=== PATIENT | female | born 1990 | race Caucasian/White ===

== ENCOUNTER 2016-07-08 09:35 | Observation (INO) | payer BC ==
[~2016-07-08] VITALS: Ht 165.1 cm; Wt 47.6 kg
[2016-07-08 10:58] LABS: EOSINOPHIL (%) 0.6 % (0-5); HEMATOCRIT 42.9 % (36.0-46.0); IMMATURE GRANULOCYTE (%) 0.1 % (0.0-0.7); IMMATURE GRANULOCYTE COUNT 0.1 K/uL; LYMPHOCYTE COUNT 2.1 K/uL (1.0-2.8); MCHC 35.4 G/DL (30.0-36.0); MCV 90.3 FL (83-99); MEAN PLAT.VOLUME 12.5 uM^3 (9.5-12.4); MONOCYTE (%) 6.9 % (3-12); MONOCYTE COUNT 0.5 K/uL (0-0.8); NEUTROPHIL (%) 61.4 % (45-76); NEUTROPHIL COUNT 4.3 K/uL (1.8-6.4); PLATELET COUNT 176 K/uL (156-360); RBC DIS.WIDTH-CV 11.4 % (11.8-14.6); RBC DIS.WIDTH-SD 36.9 % (39-53); RED BLOOD COUNT 4.75 M/uL (3.80-5.20)
[2016-07-08 11:06] LABS: ADD MIUA? NO; BILIRUBIN NEGATIVE; BLOOD NEGATIVE; COLOR YELLOW ((YELLOW)); GLUCOSE (STRIP) NEGATIVE; KETONES NEGATIVE; LEUKOCYTES NEGATIVE; NITRITE NEGATIVE; PROTEIN (STRIP) NEGATIVE; SPECIFIC GRAVITY 1.016 (1.000-1.030); UROBILINOGEN 0.2 MG/DL (0.2-1.0)
[2016-07-08 11:13] LABS: CHLORIDE 105 mEq/L (99-109); POTASSIUM 3.4 mEq/L (3.7-5.4); SODIUM 141 mEq/L (136-147)
[2016-07-08 11:15] LABS: PHENCYCLIDINE NEGATIVE (25 ng/mL); THC CANNABINOIDS PRESUMPTIVE POSITIVE (50 ng/mL)
[2016-07-08 11:16] LABS: GLUCOSE 88 mg/dL (70-99)
[2016-07-08 11:16] LABS: ADD MEDTOX COMMENT Y; AMPHETAMINE NEGATIVE (500 ng/mL); BARBITURATES NEGATIVE (200 ng/mL); BENZODIAZEPINES NEGATIVE (150 ng/mL); COCAINE NEGATIVE (150 ng/mL); INTERNAL CONTROLS VALID? YES; METHADONE NEGATIVE (200 ng/mL); METHAMPHETAMINE NEGATIVE (500 ng/mL); OPIATES (MORPHINE) NEGATIVE (100 ng/mL); OXYCODONE NEGATIVE (100 ng/mL); PROPOXYPHENE NEGATIVE (300 ng/mL); TRICYCLIC ANTIDEPRESSANTS NEGATIVE (300 ng/mL)
[2016-07-08 11:17] LABS: ANION GAP 9 MEQ/L (2-14)
[2016-07-08 11:18] LABS: TOTAL BILIRUBIN 1.4 mg/dL (0.0-1.0)
[2016-07-08 11:19] LABS: ALKALINE PHOSPHATASE 74 IU/L (3-129); SERUM ETHYL ALCOHOL < 10 mg/dL
[2016-07-08 11:20] LABS: GFR ESTIMATE (CALCULATED) > 59 mL/min/
[2016-07-08 11:21] LABS: UREA NITROGEN (BUN) 8 mg/dL (9-23)
[2016-07-08 11:28] LABS: QUANTITATIVE HCG < 4.0 MIU/ML
[2016-07-08 16:04] LABS: CREATINE KINASE 40 IU/L (1-294); TOTAL CK 40 IU/L (1-294)
[2016-07-08 16:10] LABS: CK-MB < 0.4 ng/mL (0.0-4.9)
[2016-07-08 16:11] LABS: TROP-I INTERPRETATION NEGATIVE; TROPONIN-I < 0.01 ng/mL (0.0-0.30)
[2016-07-08 16:40] VITALS: BP 107/72
[2016-07-08 17:03] LABS: PROLACTIN 15.4 NG/ML
[2016-07-08 19:00] VITALS: BP 110/67
[2016-07-08 21:55] LABS: TROP-I INTERPRETATION NEGATIVE; TROPONIN-I < 0.01 ng/mL (0.0-0.30)
[2016-07-09] VITALS: BP 98/57
[2016-07-09 03:48] VITALS: BP 97/60
[2016-07-09 09:58] LABS: TROP-I INTERPRETATION NEGATIVE; TROPONIN-I < 0.01 ng/mL (0.0-0.30)
[2016-07-09 11:51] VITALS: BP 104/58
[2016-07-09] MEDS ORDERED: TYLENOL REGULA325 MG PO (12:48)
[2016-07-09] MEDS ORDERED: LEVETIRACETAM500 MG PO (12:48)
== END 2016-07-09 14:41 | disposition home or self-care (01) ==
LOC: EME 09:35 → EDOF 14:43 → 5WEST 16:19
PROVIDERS: Emergency Medicine; Internal Medicine; Student in an Organized Health Care Education/Training Program
DX: R56.9 Unspecified convulsions (principal); R94.31 Abnormal electrocardiogram [ECG] [EKG]; F12.10 Cannabis abuse, uncomplicated; E87.6 Hypokalemia; Z82.49 Family history of ischemic heart disease and other diseases of the circulatory system; Z88.1 Allergy status to other antibiotic agents
CPT/HCPCS: 70450; 71020; 80053; 81003; 82550; 82553; 83735; 84146; 84484; 84702; 84999; 85025; 93005; 99281; 99285; G0378; G0480; J7030

== ENCOUNTER 2016-08-07 17:19 | Emergency (ER) | payer BC, OTHER ==
[~2016-08-07] VITALS: Ht 165.1 cm; Wt 47.1 kg
[~2016-08-07 17:19] MED LIST: LEVETIRACETAM500 MG PO; TYLENOL REGULA325 MG PO
[2016-08-07 18:06] LABS: HEMATOCRIT 42.7 % (36.0-46.0); MCH 31.3 PG (29.0-34.0); MCHC 34.4 G/DL (30.0-36.0); MCV 90.9 FL (83-99); RBC DIS.WIDTH-CV 11.4 % (11.8-14.6); RBC DIS.WIDTH-SD 38.1 % (39-53)
[2016-08-07 18:16] LABS: CHLORIDE 105 mEq/L (99-109); SODIUM 140 mEq/L (136-147)
[2016-08-07 18:18] LABS: GLUCOSE 91 mg/dL (70-99)
[2016-08-07 18:20] LABS: ANION GAP 10 MEQ/L (2-14)
[2016-08-07 18:22] LABS: GFR ESTIMATE (CALCULATED) > 59 mL/min/
[2016-08-07 18:23] LABS: UREA NITROGEN (BUN) 8 mg/dL (9-23)
[2016-08-07 18:41] LABS: MEAN PLAT.VOLUME 12.5 uM^3 (9.5-12.4); PLATELET COUNT 186 K/uL (156-360)
[2016-08-07 18:50] LABS: QUANTITATIVE HCG 37453.8 MIU/ML
[2016-08-07 20:04] LABS: ADD MIUA? NO; BILIRUBIN NEGATIVE; BLOOD NEGATIVE; COLOR YELLOW ((YELLOW)); GLUCOSE (STRIP) NEGATIVE; KETONES 80; LEUKOCYTES NEGATIVE; NITRITE NEGATIVE; PROTEIN (STRIP) NEGATIVE; SPECIFIC GRAVITY 1.016 (1.000-1.030); UCUL ADDED? NO; UROBILINOGEN 0.2 MG/DL (0.2-1.0)
[2016-08-07] MEDS ORDERED: ZOFRAN ODT4 MG PO (21:59)
[2016-08-07 22:17] VITALS: BP 132/57
[2016-08-08] MEDS ORDERED: PRENATAL VITAM1 EA10 PO (13:00)
== END 2016-08-07 22:21 | disposition home or self-care (01) ==
LOC: EME 17:19
DX: O26.891 Other specified pregnancy related conditions, first trimester (principal); R11.2 Nausea with vomiting, unspecified; Z3A.01 Less than 8 weeks gestation of pregnancy
CPT/HCPCS: 80048; 81003; 84702; 85027; 99281; 99284; J2405; J7030

== ENCOUNTER 2016-11-19 19:28 | Emergency (ER) | payer BC, OTHER ==
[~2016-11-19] VITALS: Ht 165.1 cm; Wt 53.3 kg
[~2016-11-19 19:28] MED LIST changes: +DICLEGIS DR 101 EACH PO; +PRENATAL VITAM1 EA10 PO; +ZOFRAN ODT4 MG PO
[2016-11-19 19:59] LABS: HEMATOCRIT 34.3 % (36.0-46.0); MCH 32.2 PG (29.0-34.0); MCHC 34.4 G/DL (30.0-36.0); MCV 93.7 FL (83-99); MEAN PLAT.VOLUME 10.9 uM^3 (9.5-12.4); PLATELET COUNT 143 K/uL (156-360); RBC DIS.WIDTH-CV 12.6 % (11.8-14.6); RBC DIS.WIDTH-SD 43.4 % (39-53); RED BLOOD COUNT 3.66 M/uL (3.80-5.20); WHITE BLOOD COUNT 5.6 K/uL (4.1-10.2)
[2016-11-19 20:08] LABS: CHLORIDE 104 mEq/L (99-109); POTASSIUM 3.6 mEq/L (3.7-5.4); SODIUM 134 mEq/L (136-147)
[2016-11-19 20:10] LABS: GLUCOSE 95 mg/dL (70-99)
[2016-11-19 20:11] LABS: ANION GAP 5 MEQ/L (2-14)
[2016-11-19 20:12] LABS: TOTAL BILIRUBIN 0.9 mg/dL (0.0-1.0)
[2016-11-19 20:13] LABS: ALKALINE PHOSPHATASE 81 IU/L (3-129)
[2016-11-19 20:14] LABS: GFR ESTIMATE (CALCULATED) > 59 mL/min/
[2016-11-19 20:15] LABS: UREA NITROGEN (BUN) 5 mg/dL (9-23)
[2016-11-19 20:17] LABS: LIPASE 7 U/L (1.0-51.0)
[2016-11-19 20:39] LABS: QUANTITATIVE HCG 28838.3 MIU/ML
[2016-11-19 21:05] LABS: CREATINE KINASE 21 IU/L (1-294)
[2016-11-19 21:13] LABS: ADD MIUA? YES; BILIRUBIN NEGATIVE; BLOOD NEGATIVE; COLOR YELLOW ((YELLOW)); GLUCOSE (STRIP) NEGATIVE; KETONES NEGATIVE; LEUKOCYTES NEGATIVE; NITRITE NEGATIVE; PROTEIN (STRIP) NEGATIVE; SPECIFIC GRAVITY 1.003 (1.000-1.030); UROBILINOGEN 0.2 MG/DL (0.2-1.0)
[2016-11-19 21:27] LABS: BACTERIA RARE /HPF; EPITHELIAL CELLS 3+ /HPF; MUCUS NONE SEEN /LPF; RED BLOOD CELLS 0-5 /HPF (0-5); WHITE BLOOD CELLS 0-5 /HPF (0-5)
[2016-11-19 21:44] VITALS: BP 117/78
== END 2016-11-19 21:47 | disposition home or self-care (01) ==
LOC: EME 19:28
PROVIDERS: Nurse Practitioner Family
DX: O98.512 Other viral diseases complicating pregnancy, second trimester (principal); B34.9 Viral infection, unspecified; O99.89 Other specified diseases and conditions complicating pregnancy, childbirth and the puerperium; R51 Headache; Z3A.21 21 weeks gestation of pregnancy
CPT/HCPCS: 71020; 80053; 81003; 82550; 83690; 84702; 85027; 87651 90; 99281; 99285; J7030

== ENCOUNTER 2016-11-21 14:38 | Outpatient (CLI) | payer BC, OTHER ==
[~2016-11-21] VITALS: Ht 165.1 cm; Wt 53.2 kg
[2016-11-21] MEDS ORDERED: TYLENOL EXTRA500 MG PO (15:26)
[2016-11-21 16:34] LABS: EOSINOPHIL (%) 0.4 % (0-5); HEMATOCRIT 32.7 % (36.0-46.0); IMMATURE GRANULOCYTE (%) 0.5 % (0.0-0.7); INSTRUMENT ABS NEUTROPHIL CT 7.1 K/uL; LYMPHOCYTE COUNT 0.8 K/uL (1.0-2.8); MCH 31.9 PG (29.0-34.0); MCHC 34.3 G/DL (30.0-36.0); MCV 93.2 FL (83-99); MEAN PLAT.VOLUME 10.6 uM^3 (9.5-12.4); MONOCYTE (%) 4.7 % (3-12); MONOCYTE COUNT 0.4 K/uL (0-0.8); NEUTROPHIL (%) 84.8 % (45-76); NEUTROPHIL COUNT 7.1 K/uL (1.8-6.4); PLATELET COUNT 154 K/uL (156-360); RBC DIS.WIDTH-CV 12.9 % (11.8-14.6); RBC DIS.WIDTH-SD 44.2 % (39-53); RED BLOOD COUNT 3.51 M/uL (3.80-5.20); WHITE BLOOD COUNT 8.3 K/uL (4.1-10.2)
[2016-11-21 17:15] LABS: ANION GAP 8 MEQ/L (2-14); CHLORIDE 101 MEQ/L (99-109); POTASSIUM 3.5 MEQ/L (3.7-5.4); SAMPLE HEMOLYSIS CHECK 0; SAMPLE ICTERIC CHECK 0; SAMPLE LIPEMIA CHECK 0; SODIUM 134 MEQ/L (136-147); TOTAL BILIRUBIN 0.9 MG/DL (0.0-1.0)
[2016-11-21 17:19] LABS: AMPHETAMINE NEGATIVE (500 ng/mL); BARBITURATES NEGATIVE (200 ng/mL); BENZODIAZEPINES NEGATIVE (150 ng/mL); COCAINE NEGATIVE (150 ng/mL); INTERNAL CONTROLS VALID? YES; METHADONE NEGATIVE (200 ng/mL); METHAMPHETAMINE NEGATIVE (500 ng/mL); OPIATES (MORPHINE) NEGATIVE (100 ng/mL); OXYCODONE NEGATIVE (100 ng/mL); PHENCYCLIDINE NEGATIVE (25 ng/mL); PROPOXYPHENE NEGATIVE (300 ng/mL); THC CANNABINOIDS NEGATIVE (50 ng/mL); TRICYCLIC ANTIDEPRESSANTS NEGATIVE (300 ng/mL)
[2016-11-21 17:21] LABS: ALKALINE PHOSPHATASE 84 IU/L (3-129); GFR ESTIMATE (CALCULATED) > 59 mL/min/; GLUCOSE 88 mg/dL (70-99); UREA NITROGEN (BUN) 5 mg/dL (9-23)
[2016-11-21 17:23] LABS: ADD MIUA? NO; BILIRUBIN NEGATIVE; BLOOD NEGATIVE; COLOR STRAW ((YELLOW)); GLUCOSE (STRIP) NEGATIVE; KETONES NEGATIVE; LEUKOCYTES NEGATIVE; NITRITE NEGATIVE; PROTEIN (STRIP) NEGATIVE; SPECIFIC GRAVITY 1.003 (1.000-1.030); UCUL ADDED? NO; UROBILINOGEN 0.2 MG/DL (0.2-1.0)
[2016-11-21 18:25] LABS: CANDIDA DNA PROBE NEGATIVE; GARDNERELLA DNA PROBE NEGATIVE; INTERNAL CONTROL VALID? YES
[2016-11-22 13:38] LABS: CHLAMYDIA TRACHOMATIS NEGATIVE; NEISSERIA GONORRHOEAE NEGATIVE
== END 2016-11-21 18:10 | disposition home or self-care (01) ==
LOC: EME 14:38 → EDSTATUS 15:01 → LDRP-OP 15:06 → 2WEST 15:07
PROVIDERS: Advanced Practice Midwife; Obstetrics & Gynecology
DX: O26.892 Other specified pregnancy related conditions, second trimester (principal); Z3A.21 21 weeks gestation of pregnancy; R10.9 Unspecified abdominal pain
CPT/HCPCS: 59025; 80053; 81003; 85025; 87086; 87480; 87491; 87510; 87591; 87660; G0378

== ENCOUNTER 2017-03-19 10:56 | Outpatient (CLI) | payer BC, OTHER ==
[~2017-03-19] VITALS: Ht 165.1 cm; Wt 68.6 kg
[~2017-03-19 10:56] MED LIST changes: +TYLENOL EXTRA500 MG PO
[2017-03-19 11:32] VITALS: BP 113/68
[2017-03-19] MEDS ORDERED: FLINTSTONES M100 MCG PO (11:58)
== END 2017-03-19 14:27 | disposition home or self-care (01) ==
LOC: LDRP-OP → EDBD → LDRP-OP 10:56 → 2WEST 10:57 → LDRP-OP 05-02 11:02
DX: O26.893 Other specified pregnancy related conditions, third trimester (principal); Z3A.38 38 weeks gestation of pregnancy; O99.353 Diseases of the nervous system complicating pregnancy, third trimester; R56.9 Unspecified convulsions; O98.313 Other infections with a predominantly sexual mode of transmission complicating pregnancy, third trimester
CPT/HCPCS: 59025; G0378

== ENCOUNTER 2017-04-07 12:08 | Inpatient (IN) | payer BC, OTHER ==
[~2017-04-07] VITALS: Ht 165.1 cm; Wt 70.5 kg
[2017-04-07] VITALS (20 sets, daily range): BP systolic 107–185; BP diastolic 59–98
[~2017-04-07 12:08] MED LIST changes: +FLINTSTONES M100 MCG PO
[2017-04-07 12:54] LABS: EOSINOPHIL (%) 0.2 % (0-5); HEMATOCRIT 38.9 % (36.0-46.0); IMMATURE GRANULOCYTE (%) 0.3 % (0.0-0.7); INSTRUMENT ABS NEUTROPHIL CT 7.9 K/uL; LYMPHOCYTE COUNT 1.3 K/uL (1.0-2.8); MCH 29.8 PG (29.0-34.0); MCHC 33.4 G/DL (30.0-36.0); MCV 89.2 FL (83-99); MEAN PLAT.VOLUME 12.4 uM^3 (9.5-12.4); MONOCYTE (%) 6.5 % (3-12); MONOCYTE COUNT 0.6 K/uL (0-0.8); NEUTROPHIL (%) 79.9 % (45-76); NEUTROPHIL COUNT 7.9 K/uL (1.8-6.4); PLATELET COUNT 132 K/uL (156-360); RBC DIS.WIDTH-SD 45.1 % (39-53); RED BLOOD COUNT 4.36 M/uL (3.80-5.20); WHITE BLOOD COUNT 9.9 K/uL (4.1-10.2)
[2017-04-08] VITALS (7 sets, daily range): BP systolic 117–138; BP diastolic 55–92
[2017-04-08 02:56] LABS: BASE EXCESS -5.7 mEq/L (-3 to +3); BICARBONATE 21.6 mEq/L (22-26); METHEMOGLOBIN 1.8 % (0-1.5); PCO2 47 mm Hg (35-45); PO2 < 28 mm Hg (80-100); pH 7.27 (7.35-7.45)
[2017-04-08 02:57] LABS: SITE CORD BLOOD ARTERIAL
[2017-04-08 03:02] LABS: BASE EXCESS -5.4 mEq/L (-3 to +3); BICARBONATE 20.6 mEq/L (22-26); CARBOXY HGB 1.4 % (0-5); METHEMOGLOBIN 1.5 % (0-1.5); pH 7.31 (7.35-7.45)
[2017-04-08 03:03] LABS: PCO2 41 mm Hg (35-45); PO2 < 28 mm Hg (80-100); SITE CORD BLOOD VENOUS
[2017-04-09 07:25] LABS: EOSINOPHIL (%) 0.6 % (0-5); EOSINOPHIL COUNT 0.1 K/uL (0-0.3); HEMATOCRIT 30.9 % (36.0-46.0); IMMATURE GRANULOCYTE (%) 0.4 % (0.0-0.7); IMMATURE GRANULOCYTE COUNT 0.1 K/uL; INSTRUMENT ABS NEUTROPHIL CT 9.6 K/uL; LYMPHOCYTE COUNT 2.1 K/uL (1.0-2.8); MCH 29.7 PG (29.0-34.0); MCHC 32.7 G/DL (30.0-36.0); MCV 90.9 FL (83-99); MEAN PLAT.VOLUME 12.7 uM^3 (9.5-12.4); MONOCYTE (%) 6.2 % (3-12); MONOCYTE COUNT 0.8 K/uL (0-0.8); NEUTROPHIL (%) 75.7 % (45-76); NEUTROPHIL COUNT 9.6 K/uL (1.8-6.4); PLATELET COUNT 139 K/uL (156-360); RBC DIS.WIDTH-CV 14.2 % (11.8-14.6); RBC DIS.WIDTH-SD 46.5 % (39-53); WHITE BLOOD COUNT 12.7 K/uL (4.1-10.2)
[2017-04-09 07:45] VITALS: BP 133/84
[2017-04-09] MEDS ORDERED: IBUPROFEN800 MG PO (10:07)
== END 2017-04-09 16:00 | disposition home or self-care (01) | DRG 774 ==
LOC: LDRP-OP 12:08 → 2WEST 12:09 → LDRP-OP 04-22 14:51
PROVIDERS: Advanced Practice Midwife; Obstetrics & Gynecology
DX: O71.4 Obstetric high vaginal laceration alone (principal); O69.1XX0 Labor and delivery complicated by cord around neck, with compression, not applicable or unspecified; O26.03 Excessive weight gain in pregnancy, third trimester; O98.52 Other viral diseases complicating childbirth; B00.9 Herpesviral infection, unspecified; O99.354 Diseases of the nervous system complicating childbirth; G40.909 Epilepsy, unspecified, not intractable, without status epilepticus; Z3A.40 40 weeks gestation of pregnancy; Z37.0 Single live birth
CPT/HCPCS: 36600; 82803; 85025; C1755; G0378; J2405; J2795; J7120

== ENCOUNTER 2017-10-31 11:31 | Emergency (ER) | payer OTHER ==
[~2017-10-31] VITALS: Ht 167.6 cm; Wt 54.5 kg
[~2017-10-31 11:31] MED LIST changes: +IBUPROFEN800 MG PO
[2017-10-31 12:09] LABS: HEMATOCRIT 43.1 % (36.0-46.0); HEMOGLOBIN 15.1 G/DL (11.9-15.5); MCH 31.5 PG (29.0-34.0); MCV 89.8 FL (83-99); PLATELET COUNT 194 K/uL (156-360); RBC DIS.WIDTH-CV 11.7 % (11.8-14.6); WHITE BLOOD COUNT 6.4 K/uL (4.1-10.2)
[2017-10-31 12:17] LABS: CHLORIDE 106 mEq/L (99-109); POTASSIUM 3.8 mEq/L (3.7-5.4); SODIUM 141 mEq/L (136-147)
[2017-10-31 12:19] LABS: GLUCOSE 83 mg/dL (70-99)
[2017-10-31 12:23] LABS: CREATININE 0.8 mg/dL (0.6-1.3); GFR ESTIMATE (CALCULATED) > 59 mL/min/
[2017-10-31 12:24] LABS: UREA NITROGEN (BUN) 13 mg/dL (9-23)
[2017-10-31 12:55] VITALS: BP 122/61
== END 2017-10-31 12:55 | disposition home or self-care (01) ==
LOC: EME 11:31
PROVIDERS: Nurse Practitioner Family
DX: S30.0XXA Contusion of lower back and pelvis, initial encounter (principal); M62.830 Muscle spasm of back; W22.09XA Striking against other stationary object, initial encounter; Z88.1 Allergy status to other antibiotic agents
CPT/HCPCS: 80048; 85027; 99281; 99283